=== PATIENT | male | born 1995 | race African-American/Black ===

== ENCOUNTER 2023-04-10 23:41 | Emergency (ER) | payer SELFPAY ==
[2023-04-10] MEDS ORDERED: Diphtheria,Pertussis(Acell),Tetanus Vaccine 0.5 ML Syringe IM ONE (23:57)
[2023-04-10] MEDS ORDERED: Lidocaine 1% 5 ML VIAL INJECT ONE (23:58)
[2023-04-10] MEDS ORDERED: ceFAZolin 1 GM Vial IM ONE (23:58)
[2023-04-11] MEDS: Lidocaine 1% PF 2 ML SDV INJECT ONE ×2 (00:18→00:25)
[2023-04-11] MEDS ORDERED: Water For Injection, Sterile 10 ML SDV INJECT ONE (00:25)
[2023-04-11] MEDS: Water For Injection, Sterile 20 ML ONE ×2 (00:25→00:29)
[2023-04-11] MEDS ORDERED: Bacitracin Oint 1 GM U/D Packet TOP ONE (01:13)
== END 2023-04-11 01:35 | disposition home or self-care (01) ==
LOC: MW.ED 23:41
DX: S61.216A Laceration without foreign body of right little finger without damage to nail, initial encounter (principal); Z23 Encounter for immunization; Z91.048 Other nonmedicinal substance allergy status; W26.8XXA Contact with other sharp object(s), not elsewhere classified, initial encounter
CPT/HCPCS: 12002; 73140; 90471; 90715; 96372; 99283; J0690; J3490

== ENCOUNTER 2023-04-24 14:13 | Emergency (ER) | payer SELFPAY | END 2023-04-24 14:51 | disposition left against medical advice (07) | LOC: MW.ED 14:13 | DX: Z48.02 Encounter for removal of sutures (principal) | CPT/HCPCS: 99281 ==

== ENCOUNTER 2023-10-22 09:18 | Emergency (ER) | payer OTHER ==
[2023-10-22] MEDS: Tranexamic Acid 1,000 MG/10 ML Vial ONE (09:49)
[2023-10-22] MEDS: Ondansetron 4 MG/2 ML SDV IVPUSH ONE (09:49)
[2023-10-22] MEDS: Sodium Chloride 0.9% 1,000 ML IV ONE (09:49)
[2023-10-22] MEDS: Racepinephrine 2.25% 0.5 ML Neb Soln NEB ONE (09:49)
[2023-10-22] MEDS: Sodium Chloride 0.9% 10 ML Syringe FLUSH PRN (09:50)
[2023-10-22] MEDS: Sodium Chloride 0.9% 2.5 ML Syringe FLUSH PRN (09:50)
[2023-10-22] MEDS: Morphine 2 MG/ML SYRINGE IVPUSH ONE (09:55)
[2023-10-22] MEDS: Sodium Chloride 0.9% Inhalation Soln 3 ML Neb INH PRN (09:56)
[2023-10-22] MEDS: Ampicillin/Sulbactam Na 3 GM in Sodium Chloride 0.9% 100 ML IV ONE (09:56)
[2023-10-22 09:59] LABS: BASOPHILS ABSOLUTE AUTO 0.06 K/uL (0.00-0.20); BASOPHILS PERCENT AUTO 0.6 % (0.0-1.0); EOSINOPHILS ABSOLUTE AUTO 0.15 K/uL (0.00-0.45); EOSINOPHILS PERCENT AUTO 1.5 % (0.0-6.0); HEMATOCRIT 38.1 % (42.0-52.0); IMMATURE GRAN ABSOLUTE AUTO 0.03 K/uL (0.00-0.05); IMMATURE GRAN PERCENT AUTO 0.3 % (0.0-0.4); LYMPHOCYTES ABSOLUTE AUTO 3.97 K/uL (1.00-4.80); LYMPHOCYTES PERCENT AUTO 39.4 % (24.0-44.0); MEAN CORPUSCULAR HEMOGLOBIN 26.9 pg (28.0-32.0); MEAN CORPUSCULAR HGB CONC 34.1 g/dL (32.0-36.0); MEAN CORPUSCULAR VOLUME 78.7 fL (83.0-99.0); MEAN PLATELET VOLUME 9.2 fL (9.4-12.4); MONOCYTES ABSOLUTE AUTO 0.77 K/uL (0.00-0.80); MONOCYTES PERCENT AUTO 7.6 % (0.0-8.0); NEUTROPHILS PERCENT AUTO 50.6 % (41.0-71.0); PLATELET COUNT,PLT 227 K/uL (150-400); RED BLOOD CELL COUNT 4.84 M/uL (4.52-5.90); WHITE BLOOD CELL COUNT,WBC 10.08 K/uL (3.9-11.3)
[2023-10-22] MEDS: Lidocaine 1% with EPINEPHrine 1:200,000 30 ML SDV INJECT ONE (09:59)
[2023-10-22 10:24] LABS: A/G RATIO 1.3 (0.9-1.6); ALANINE AMINOTRANSFERASE,ALT 39 IU/L (14-63); ALBUMIN 4.1 g/dL (3.4-5.0); ALKALINE PHOSPHATASE 71 U/L (46-116); ASPARTATE AMNIOTRANSFERASE,AST 43 IU/L (15-37); BILIRUBIN TOTAL 0.7 mg/dL (0.2-1.0); BLOOD UREA NITROGEN,BUN 14 mg/dL (7.0-18.0); CALCIUM 8.9 mg/dL (8.5-10.1); CARBON DIOXIDE,CO2 22.2 mmol/L (21.0-32.0); CHLORIDE,CL 103 mmol/L (98-107); CREATININE 1.3 mg/dL (0.8-1.3); EST CRCL DRUG DOSING (CG) 89.15 mL/min; ETHANOL BLOOD MEDICAL <3 mg/dL; GLUCOSE RANDOM 170 mg/dL (74-106); POTASSIUM,K 3.3 mmol/L (3.5-5.1); PROTEIN TOTAL,TP 7.3 g/dL (6.4-8.2); SODIUM,NA 142 mmol/L (136-148)
[2023-10-22 10:25] LABS: ESTIMATED GFR 77 mL/min (>60)
[2023-10-22] MEDS: Morphine 4 MG/ML Syringe IVPUSH ONE ×2 (10:42→11:57)
== END 2023-10-22 12:58 ==
LOC: MW.ED 09:18
DX: S02.609B Fracture of mandible, unspecified, initial encounter for open fracture (principal); S02.40CA Maxillary fracture, right side, initial encounter for closed fracture; Z91.048 Other nonmedicinal substance allergy status; W22.8XXA Striking against or struck by other objects, initial encounter; Y99.0 Civilian activity done for income or pay
CPT/HCPCS: 36415; 70450; 70486; 72125; 80053; 80307; 85025; 94640; 96365; 96375; 96376; 99285; J0295; J2270; J2405; J3490; J7030; 99291